=== PATIENT | female | born 1960 | race Two or more races ===

== ENCOUNTER 2021-03-06 13:37 | Emergency (ER) | payer OTHER ==
[~2021-03-06] VITALS: Ht 157.5 cm; Wt 80.3 kg
[2021-03-06 13:42] VITALS: BP 111/78
[2021-03-06] MEDS ORDERED: KETOROLAC TROMETHAMINE INJ 30 MG/ML VIAL IM ONE (14:30)
[2021-03-06] MEDS ORDERED: CYCLOBENZAPRINE 10 MG TABLET PO ONE (14:30)
[2021-03-06] MEDS ORDERED: HYDROMORPHONE 1 MG/1 ML DISP.SYRIN IM ONE (14:30)
[2021-03-06] MEDS ORDERED: KETOROLAC TROMETHAMINE INJ 30 MG/ML VIAL ONE (14:55)
[2021-03-06] MEDS ORDERED: HYDROMORPHONE 1 MG/1 ML DISP.SYRIN ONE (14:55)
[2021-03-06] MEDS ORDERED: CYCLOBENZAPRINE 10 MG TABLET ONE (14:55)
--- NOTE | 2021-03-06 15:38 | NUR ---
MEDICATED PER ERMD ORDER, PT ALVERTO WELL.
== END 2021-03-06 19:11 | disposition home or self-care (01) ==
LOC: ER 13:42
DX: M79.604 Pain in right leg (principal); M25.561 Pain in right knee; I10 Essential (primary) hypertension; E11.9 Type 2 diabetes mellitus without complications; Z98.890 Other specified postprocedural states; Z88.6 Allergy status to analgesic agent
CPT/HCPCS: 73564; 93926; 93971; 96372 ×2; 99284; J1170; J1885